=== PATIENT | male | born 1990 | race Caucasian/White ===

== ENCOUNTER → 2020-11-17 11:06 | Outpatient (BNVA) | payer OTHER, SELFPAY | PROVIDERS: PCP Internal Medicine; Referring Provider Internal Medicine; Visit Provider Surgery | DX: K40.30 Unilateral inguinal hernia, with obstruction, without gangrene, not specified as recurrent (principal); Z87.891 Personal history of nicotine dependence | CPT/HCPCS: 99202 ==

== ENCOUNTER 2021-04-26 07:27 | Day surgery (SDC) | payer OTHER, SELFPAY ==
[2021-04-20 10:23] VITALS: BMI 32.4
[2021-04-21 14:50] VITALS: BMI 31.3
--- NOTE | 2021-04-25 09:04 | P.CONAN_ITS ---
Documented by User: Tracey Carrero NP 04/25/21 09:05 HPI - Anesthesia Eval Consult details Narrative: 30yo M for Right Hernia Repair Inguinal with mesh PMFSH Active Problems Active Problems: All Active Problems (Updated 04/21/21 @ 14:50 by Gosia Pedroza RN) Incarcerated right inguinal hernia (Acute) Past Medical History Medical History (Updated 04/21/21 @ 14:50 by Gosia Pedroza RN) Asthma Migraines Family History Family History (Updated 11/17/20 @ 11:21 by MAVIS Hickman) Brother Neuroblastoma Surgical History Surgical History (Updated 11/17/20 @ 11:21 by AMVIS Hickman) S/P correction of deviated nasal septum (~2015) Social History Social History (Updated 11/17/20 @ 11:21 by MAVIS Hickman) Alcohol intake: current Patient Tobacco Use Status: Former Tobacco user Quit Date: 12/2020 Tobacco use type: Cigarette Years Smoked: 15 Use of substances other than those prescribed or required for medical reasons: Yes Substance Use Frequency: Occasionally Are you DNR?: No Advance Directives: No Advance Directives Information Provided: Yes Advance Directives on File: No Meds Allergies Allergy/AdvReac Type Severity Reaction Status Date / Time latex Allergy Rash Verified 04/26/21 07:49 tramadol Allergy Anaphylaxis Verified 04/26/21 07:49 Home Medications Medication Instructions Recorded Confirmed Last Taken Type blood pressure test kit-large #1 ea 11/17/20 11/17/20 Unknown History magnesium oxide 400 mg PO DAILY 04/21/21 04/21/21 Unknown History riboflavin (vitamin B2) 400 mg 400 mg PO DAILY 04/21/21 04/21/21 Unknown History tablet Exam Exam Date and Time: April 25, 2021 0904 Height,Weight and Vital Signs: Height 5 ft 7 in Weight 90.718 kg Assessment and Plan Assessment Anesthesia Assessment: Chart Reviewed Documented by User: Noam Marquez 04/26/21 08:06 [facility] Past Medical History Medical History (Updated 04/21/21 @ 14:50 by Gosia Pedroza, RN) Asthma Migraines Functional capacity: independent ambulation Family History Family History (Updated 11/17/20 @ 11:21 by MAVIS Hickman) Brother Neuroblastoma Family history of problems with anesthesia: No Surgical History Surgical History (Updated 11/17/20 @ 11:21 by MAVIS Hickman) S/P correction of deviated nasal septum (~2015) History of Problems with Anesthesia: No Social History Social History (Updated 11/17/20 @ 11:21 by MAVIS Hickman) Alcohol intake: current Patient Tobacco Use Status: Former Tobacco user Quit Date: 12/2020 Tobacco use type: Cigarette Years Smoked: 15 Use of substances other than those prescribed or required for medical reasons: Yes Substance Use Frequency: Occasionally Are you DNR?: No Advance Directives: No Advance Directives Information Provided: Yes Advance Directives on File: No Meds Allergies Allergy/AdvReac Type Severity Reaction Status Date / Time latex Allergy Rash Verified 04/26/21 07:49 tramadol Allergy Anaphylaxis Verified 04/26/21 07:49 Home Medications Medication Instructions Recorded Confirmed Last Taken Type blood pressure test kit-large #1 ea 11/17/20 11/17/20 Unknown History magnesium oxide 400 mg PO DAILY 04/21/21 04/21/21 Unknown History riboflavin (vitamin B2) 400 mg 400 mg PO DAILY 04/21/21 04/21/21 Unknown History tablet Exam Airway Mallampati Class: II TM Dist: >3cm Neck ROM: Full Loose/Missing/Broken Teeth: Yes (Chipped teeth ) Heart: rrr Lungs: bl breath sounds Assessment and Plan Final Anesthetic Review Family History of Problems with Anesthesia: No History of Problems with Anesthesia: No NPO: Yes ASA Class: II Final Preanesthetic Review: Meds/Allgs Chart Reviewed and Anes Risks/Benef Reviewed Patient Risk: Intermediate Procedure Risk: Intermediate Anesthetic Plan Anesthetic Plan: GA Disposition: Standard PACU
[2021-04-26] VITALS (11 sets, daily range): BP systolic 107–146; BP diastolic 56–101; PULSE 56–90; RESP 12–16; TEMP 36.1–36.7; O2SAT 96–100
[2021-04-26] MEDS: Lactated Ringers 1,000 ML 100 ML IVCONT (08:24)
--- NOTE | 2021-04-26 08:31 | MHC.SHP ---
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 He has intermittent pain in the right groin which increases with pressure on the groin. Hernias noted to increase in size with Valsalva maneuvers. Relevant Family History (Specify if Yes): No Relevant Social History: None Present Medications: see Short Stay Collaborative assessment Medical History: Significant History ( Asthma) History of Previous Operations: No relevant previous surgery Allergies: Allergies Allergy/AdvReac Type Severity Reaction Status Date / Time latex Allergy Rash Verified 04/26/21 07:49 tramadol Allergy Anaphylaxis Verified 04/26/21 07:49 Review of Systems Sugical H&P ROS: Negative: Constitution, Cardiovascular, Respiratory, Neurological, Psychiatric, Hem-Onc, Allergic/Immunologic, Gastrointestinal, Genitourinary, Musculoskeletal, Integumentary, Endocrine and Eyes/Ears/Nose/Throat Exam Surgical H&P Exam: Normal: HEENT, Normal: Heart, Normal: Lungs, Normal: Extremities, Normal: Skin and Normal: Neurological and Significant Findings: Abdomen ( right inguinal hernia reducible) Plan Diagnosis/Plan: Unchanged I have reviewed the history and physical and performed a pertinent physical examination on my patient. No changes have occurred unless specified.
--- NOTE | 2021-04-26 09:59 | P.OP_ITS ---
Operative Note Operative Note Date of Service: 04/26/21 Narrative: Preoperative diagnosis:Right inguinal hernia Postoperative diagnosis: same Procedure: repair of right inguinal hernia with mesh Surgeon: Esvin Nicole MD Internal Auditor: Lucrecia Barksdale PA-C Anesthesia: general laryngeal mask airway Indications for procedure: 30-year-old male patient presenting with a lump in the right groin which increases in size with lifting and straining. He has intermittent pain associated with the hernia feels hernias increased in size. Examination has a hernia which increased size with Valsalva maneuvers and reduces with light pressure. Operative findings:direct sliding right inguinal hernia Specimen: hernia sac Estimated blood loss: 5 mL Complications: none Procedure details: patient was brought to the OR and placed in a supine position. After administering stage a at the patient's abdomen was prepped with ChloraPrep and draped in a sterile fashion. A surgical time-out was called and the consent confirmed. Patient received preoperative antibiotics and Venodyne boots were in place. Local anesthesia consisting of 0.5% Sensorcaine was then infiltrated over the right inguinal ligament. Incision was then made with a scalpel carried out through subcutaneous tissue, past Ursula's fascia, and up to the external oblique aponeurosis. Additional local was infiltrated below the fascia. The external oblique aponeurosis was then incised with a scalpel wide with the Metzenbaum scissors. The spermatic cord was then dissected free from the surrounding inguinal canal and retracted using a [place] drain. Floor of the inguinal canal was examined and no direct hernia identified. Fibers of the cremasteric muscle were then divided and the inguinal canal explored. A large indirect sac was identified. This was dissected down to the internal ring. The sac was then entered a large sliding hernia identified. Hernia sac was excised and sent to pathology for further examination. A pursestring stitch was then placed using 0 Polysorb suture and secured to the internal oblique muscle to reduce the sliding component. Attention was then directed to the direct space was divided between clamps. The internal oblique aponeurosis and transversalis aponeurosis were incised with the electrocautery preperitoneal space entered. This was then widened using a Ray- Jeni sponge. An extended large PHS mesh was then obtained. The circular underlay was then deployed in the preperitoneal space. The overlay was then secured to the pubic tubercle, conjoined tendon, and shelving edge of the inguinal ligament using a 0 Polysorb suture. A slit was made in the mesh and the mesh wrapped around the spermatic cord at the internal ring. This was then secured to the shelving edge of the inguinal ligament. Additional sutures were placed laterally on the mesh into the shelving edge of the inguinal ligament and the conjoined tendon. Wounds were then irrigated with saline solution and suctioned dry. Additional local anesthesia was infiltrated at this time. External oblique aponeurosis was then closed using a running 2 0 Polysorb suture. Ursula's fascia and dermis were then reapproximated using interrupted 3-0 Polysorb sutures. Skin was closed using a running subcuticular 4-0 Polysorb suture. Steri-Strips 2 x 2 gauze and Tegaderm were then applied. The patient tolerated the procedure well. Sponge, instrument, and needle counts were reported as correct. The patient was transferred to PACU in stable condition.
[2021-04-26] MEDS: oxyCODONE HCl Immed Release 5 MG TABLET 10 MG PO (10:52)
== END 2021-04-26 12:12 | disposition home or self-care (01) ==
PROVIDERS: PCP Family Medicine; Visit Provider Surgery
PROC: (CPT 49507; principal; 2021-04-26 09:10)
DX: K40.30 Unilateral inguinal hernia, with obstruction, without gangrene, not specified as recurrent (principal); J45.909 Unspecified asthma, uncomplicated; Z87.891 Personal history of nicotine dependence
CPT/HCPCS: 49507; 88302; C1781; J0690; J1100; J2250; J2405; J3010

== ENCOUNTER → 2021-05-04 10:12 | Outpatient (BNVA) | payer OTHER, SELFPAY | PROVIDERS: PCP Family Medicine; Referring Provider Family Medicine; Visit Provider Surgery | DX: Z48.815 Encounter for surgical aftercare following surgery on the digestive system (principal); Z98.890 Other specified postprocedural states; Z87.19 Personal history of other diseases of the digestive system | CPT/HCPCS: 99212 ==

== ENCOUNTER → 2021-06-02 10:05 | Outpatient (BNVA) | payer OTHER, SELFPAY | PROVIDERS: PCP Family Medicine; Referring Provider Family Medicine; Visit Provider Surgery | DX: Z48.815 Encounter for surgical aftercare following surgery on the digestive system (principal); Z87.19 Personal history of other diseases of the digestive system | CPT/HCPCS: 99212 ==